=== PATIENT | female | born 1965 | race African-American/Black ===

== ENCOUNTER 2019-09-03 04:35 | Emergency (ER) | payer OTHER, BC ==
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
[2019-09-03 06:00] VITALS: BP 165/90
== END 2019-09-03 06:03 | disposition home or self-care (01) ==
LOC: ER 04:35
DX: S13.4XXA Sprain of ligaments of cervical spine, initial encounter (principal); S20.219A Contusion of unspecified front wall of thorax, initial encounter; V43.52XA Car driver injured in collision with other type car in traffic accident, initial encounter; Z88.2 Allergy status to sulfonamides
CPT/HCPCS: 99283